=== PATIENT | male | born 1955 | race Caucasian/White ===

== ENCOUNTER 2025-03-05 05:55 | Day surgery (SDC) | payer OTHER, MEDICARE ==
[2025-03-04 12:59] VITALS: BMI 31.1
[2025-03-05] MEDS ORDERED: LIDOCAINE HCL 2% JELLY 11 ML TP ONE (11:59)
[2025-03-05] MEDS ORDERED: KETOROLAC TROMETHAMINE 30 MG/1 ML VIAL ONE (12:32)
[2025-03-05 12:36] VITALS: RESP 16; TEMP 97.5
[2025-03-05 13:03] VITALS: BP 118/85; PULSE 65
== END 2025-03-05 13:13 | disposition home or self-care (01) ==
LOC: JASU-ENDO 05:55
PROVIDERS: ATTEND Internal Medicine Gastroenterology
PROC: 06LY8CC Occlusion of Hemorrhoidal Plexus with Extraluminal Device, Via Natural or Artificial Opening Endoscopic (ICD-10-PCS; 2025-03-05)
PROC: 0DB58ZX Excision of Esophagus, Via Natural or Artificial Opening Endoscopic, Diagnostic (ICD-10-PCS; 2025-03-05)
PROC: 0DJD8ZZ Inspection of Lower Intestinal Tract, Via Natural or Artificial Opening Endoscopic (ICD-10-PCS; principal; 2025-03-05 11:30)
DX: K64.8 Other hemorrhoids (principal); K21.00 Gastro-esophageal reflux disease with esophagitis, without bleeding
CPT/HCPCS: 88305-TC